=== PATIENT | female | born 1990 | race Caucasian/White ===

== ENCOUNTER → 2023-06-29 | Outpatient (CLI) | payer OTHER ==
[2023-06-29 17:28] LABS: ALBUMIN 3.9 G/DL (3.2-5.2); ALKALINE PHOSPHATASE 62 U/L (46-116); ALT/SGPT 20 U/L (7.0-40); AST/SGOT 10 U/L (<34); BILIRUBIN,TOTAL 0.4 MG/DL (0.3-1.2); BLOOD UREA NITROGEN 13 MG/DL (9-23); CALCIUM LEVEL 9.3 MG/DL (8.5-10.1); CARBON DIOXIDE LEVEL 32 MMOL/L (20-31); CHLORIDE LEVEL 104 MMOL/L (98-107); CREATININE FOR GFR 0.66 MG/DL (0.55-1.30); GLOMERULAR FILTRATION RATE > 60.0 (>60); GLUCOSE, FASTING 66 MG/DL (60-100); POTASSIUM SERUM 4.6 MMOL/L (3.5-5.1); SODIUM LEVEL 140 MMOL/L (136-145); TOTAL PROTEIN 7.1 G/DL (5.7-8.2)
[2023-06-29 18:10] LABS: HEMOGLOBIN A1c 4.7 % (4.0-6.0)
== END ==
LOC: M WUC 11:46
PROVIDERS: ATTEND Nurse Practitioner Family
DX: R42 Dizziness and giddiness (principal)

== ENCOUNTER 2023-08-15 06:09 | Observation (INO) | payer OTHER ==
[~2023-08-15] VITALS: Ht 160 cm; Wt 82.5 kg
[2023-08-15] VITALS (9 sets, daily range): BP systolic 115–130; BP diastolic 71–85; TEMP 97–98.2; O2SAT 88–98
[~2023-08-15 06:09] MED LIST: AMOX500T2 PO; ATOM40CA16 PO; CETI10CH PO; MAGN200T PO; OMEP1CAP73 PO; PROZ10CA7 PO; VITA100093 PO
[2023-08-15] MEDS ORDERED: propofoL 200 MG/20 ML VIAL As Ordered ONE (06:58)
[2023-08-15] MEDS ORDERED: LIDOCAINE 2% 100MG/5ML SDV (FOR ANES.) As Ordered ONE (06:58)
[2023-08-15] MEDS ORDERED: SUGAMMADEX SODIUM 500 MG/5 ML VIAL (BRIDION) As Ordered ONE (06:58)
[2023-08-15] MEDS ORDERED: ONDANSETRON 4MG 2ML VIAL As Ordered ONE (06:58)
[2023-08-15] MEDS ORDERED: ROCURONIUM BROMIDE 50MG/5ML VIAL As Ordered ONE (06:58)
[2023-08-15] MEDS ORDERED: fentaNYL 250 MCG/5 ML INJECTION As Ordered ONE (07:02)
[2023-08-15] MEDS ORDERED: MIDAZOLAM INJ 2MG/2ML VIAL As Ordered ONE (07:02)
[2023-08-15] MEDS: LR 1,000 ML IV SCH ×2 (07:03→13:17)
[2023-08-15] MEDS ORDERED: dexmedeTOMIDine (4MCG/ML)200MCG/50ML BTL (PRECEDEX) As Ordered ONE (07:12)
[2023-08-15] MEDS: SCOPOLAMINE 1MG TRANSDERMAL PATCH TOP ONE (07:39)
[2023-08-15] MEDS: ceFAZolin SOD 2 GM in IV 1 EA IV ONE (07:51)
[2023-08-15] MEDS: HEPARIN SOD (PORCINE) 5000UNITS/ML 1ML VIAL/SYRINGE SQ ONE (07:52)
[2023-08-15] MEDS ORDERED: ACETAMINOPHEN 1000MG 100ML IV BAG As Ordered ONE (08:01)
[2023-08-15] MEDS ORDERED: HYDROmorphone HCL 2MG/ML 1ML VIAL As Ordered ONE (09:14)
[2023-08-15] MEDS: GENTAMICIN SULF 80MG/2ML VIAL As Ordered ONE (09:16)
[2023-08-15] MEDS ORDERED: LR 1,000 ML IV SCH (11:40)
[2023-08-15] MEDS ORDERED: fentaNYL 100 MCG/2 ML INJECTION IV PRN (11:40)
[2023-08-15] MEDS ORDERED: HYDROMORPHONE HCL 0.5 MG/ 0.5 ML SYRINGE IV PRN (11:40)
[2023-08-15] MEDS ORDERED: ONDANSETRON 4MG 2ML VIAL IV PRN (11:40)
[2023-08-15] MEDS ORDERED: oxyCODONE 5MG TAB PO PRN (11:40)
[2023-08-15] MEDS: ONDANSETRON 4MG 2ML VIAL IV PRN (14:48)
[2023-08-15] MEDS: ceFAZolin SOD 1 GM in D5W MINI-BAG PLUS 50 ML IV SCH (15:22)
[2023-08-15] MEDS: traMADol 50 MG TAB PO PRN (17:03)
[2023-08-15] MEDS: ACETAMINOPHEN TAB 650MG DOSE (2X325MG) PO PRN (17:46)
[2023-08-16] MEDS: PERCOCET 5MG/325MG TAB PO PRN (01:40)
[2023-08-16 02:00] VITALS: BP 124/78; TEMP 98.8; O2SAT 98
[2023-08-16 06:00] VITALS: BP_SYST 124; BP_DIAS 57; BP_DIAS 78; TEMP 98.4; O2SAT 98
[2023-08-16 06:30] VITALS: O2SAT 94
[2023-08-16 10:00] VITALS: BP 133/76; TEMP 98.4; O2SAT 98
[2023-08-16] MEDS ORDERED: TRAM50TA2 PO (12:18)
[2023-08-16 14:00] VITALS: BP 134/81; TEMP 98.1; O2SAT 97
== END 2023-08-16 15:30 | disposition home or self-care (01) ==
LOC: M SDC 06:09 → M RR INP 06:10 → EDUNIT# 07:30 → M MS5PR 13:00
PROVIDERS: ADMIT Plastic Surgery Surgery of the Hand; ATTEND Plastic Surgery Surgery of the Hand
DX: N62 Hypertrophy of breast (principal); K21.9 Gastro-esophageal reflux disease without esophagitis; F90.9 Attention-deficit hyperactivity disorder, unspecified type; F41.9 Anxiety disorder, unspecified; F32.A Depression, unspecified; Z79.899 Other long term (current) drug therapy; Z88.5 Allergy status to narcotic agent
CPT/HCPCS: 19318; 81025; 88305; 96361; 96365; 96366; 96375; C9290; J0131; J0665; J0690; J1100; J1170; J1580; J2250; J2405; J3010